=== PATIENT | female | born 1940 | race Two or more races ===

== ENCOUNTER 2019-03-22 23:08 | Inpatient (IN) | payer MEDICARE ==
[~2019-03-22] VITALS: Ht 165.1 cm; Wt 58.5 kg
[~2019-03-22 23:08] MED LIST: ENALAPRIL
[2019-03-22] MEDS ORDERED: ENAL5TAB PO (23:19)
[2019-03-22] MEDS ORDERED: ACETAMINOPHEN 500 MG TABLET PO ONE (23:45)
[2019-03-23] MEDS ORDERED: SODIUM CHLORIDE 0.9% 1,000 ML IV ONE (01:45)
[2019-03-23] MEDS ORDERED: MORPHINE SULFATE 2 MG/ML SYRINGE IVP ONE (01:45)
[2019-03-23 01:55] LABS: BASOPHILS % (AUTO) 0.2 % (0.0-2.0); EOSINOPHILS % (AUTO) 0.4 % (1.0-6.0); HEMATOCRIT 40.8 % (36-46); HEMOGLOBIN 13.4 g/dL (12.0-16.0); LYMPHOCYTES # (AUTO) 1.2 K/uL (1.0-4.8); LYMPHOCYTES % (AUTO) 8.6 % (22.0-44.0); MEAN CORPUSCULAR HEMOGLOBIN 31.8 pg (26.0-34.0); MEAN CORPUSCULAR HGB CONC 32.9 G/dL (31.0-37.0); MEAN CORPUSCULAR VOLUME 97 fL (80-100); MONOCYTES # (AUTO) 0.8 K/uL (0.1-1.0); MONOCYTES % (AUTO) 5.8 % (2.0-9.0); NEUTROPHILS # (AUTO) 11.9 K/uL (1.8-7.7); PLATELET COUNT (AUTO) 235 K/uL (150-450); RED BLOOD CELL COUNT(AUTO) 4.22 MIL/uL (4.00-5.20); RED CELL DISTRIBUTION WIDTH 13.7 % (11.5-14.5)
[2019-03-23 02:01] LABS: CALCIUM, TOTAL 8.9 mg/dL (8.8-10.5); CREATININE 0.97 mg/dL (0.60-1.30); POTASSIUM 3.4 mmol/L (3.5-5.1)
[2019-03-23 02:07] LABS: PROTHROMBIN TIME 10.4 SEC (9.4-11.6)
[2019-03-23 02:08] LABS: ALBUMIN 4.2 g/dL (3.4-5.0); BILIRUBIN,TOTAL 0.5 mg/dL (0.1-1.0); TOTAL PROTEIN, SERUM 7.4 g/dL (6.4-8.2)
[2019-03-23 02:23] LABS: APPEARANCE,URINE CLEAR (CLEAR); BILIRUBIN,URINE NEGATIVE (NEGATIVE); GLUCOSE, URINE (UA) NEGATIVE (NEGATIVE); KETONES,URINE 15 mg/dL (NEGATIVE); LEUKOCYTE ESTERASE ,URINE NEGATIVE (NEGATIVE); NITRATE,URINE POSITIVE (NEGATIVE); OCCULT BLOOD,URINE NEGATIVE (NEGATIVE); PH,URINE 6.5 (5.0-8.0); PROTEIN,URINE NEGATIVE (NEGATIVE)
[2019-03-23 02:30] LABS: BACTERIA,URINE Rare /HPF (None Seen); RBC,URINE 0-2 /HPF (0-2); SQUAMOUS EPITHELIAL CELL,UR Rare /LPF (None Seen); WBC,URINE None Seen /HPF (0-5)
[2019-03-23] MEDS ORDERED: ONDANSETRON HCL 4 MG/2 ML VIAL IVP ONE ×2 (02:45→12:00)
[2019-03-23] MEDS ORDERED: ACETAMINOPHEN 325 MG TABLET PO PRN (03:30)
[2019-03-23] MEDS ORDERED: ONDANSETRON HCL 4 MG/2 ML VIAL IVP PRN (03:30)
[2019-03-23] MEDS ORDERED: 0.9% SODIUM CHLORIDE 10 ML SYRINGE IVP PRN (03:30)
[2019-03-23] MEDS ORDERED: SUCCINYLCHOLINE CHLORIDE 20 MG/ML 10 ML VIAL IVP ONE (12:00)
[2019-03-23] MEDS ORDERED: FentaNYL CITRATE-PF 100 MCG/2 ML VIAL IVP ONE ×2 (12:00)
[2019-03-23] MEDS ORDERED: ROCURONIUM BROMIDE 10 MG/ML 5 ML VIAL IVP ONE (12:00)
[2019-03-23] MEDS ORDERED: DEXAMETHASONE SOD PHOS 4 MG/ML VIAL IVP ONE (12:00)
[2019-03-23] MEDS ORDERED: MORPHINE SULFATE 4 MG/ML SYRINGE IVP ONE ×2 (12:00)
[2019-03-23] MEDS ORDERED: PROPOFOL 1% 20 ML VIAL IVP ONE (12:00)
[2019-03-23] MEDS ORDERED: 0.9% SODIUM CHLORIDE 10 ML VIAL IVP ONE (12:00)
[2019-03-23] MEDS ORDERED: PHENYLEPHRINE HCL 10 MG/ML VIAL IVP ONE (12:00)
[2019-03-23] MEDS ORDERED: EPHEDrine SULFATE 50 MG/ML VIAL IM ONE (12:00)
[2019-03-23] MEDS ORDERED: TRANEXAMIC ACID 1,000 MG in DEXTROSE 5%-WATER 50 ML IV ONE (13:30)
[2019-03-23] MEDS ORDERED: BUPIVACAINE LIPOSOME/PF 1.3%-13.3MG/ML SUSPENSION 20 ML VIAL INJ ONE (13:30)
[2019-03-23] MEDS ORDERED: BUPIVACAINE HCL/PF 0.5% 30 ML VIAL ONE (13:42)
[2019-03-23] MEDS ORDERED: SODIUM CL IRRIG SOLN BAG 3,000 ML IRRIG ONE (13:43)
[2019-03-23] MEDS ORDERED: RINGERS SOLUTION,LACTATED 1,000 ML IV ONE (13:43)
[2019-03-23] MEDS ORDERED: VANCOMYCIN HCL 1 GM/VIAL ONE (13:46)
[2019-03-23] MEDS ORDERED: MEPERIDINE-PF 25 MG/ML VIAL IVP PRN (14:15)
[2019-03-23] MEDS ORDERED: FentaNYL CITRATE-PF 100 MCG/2 ML VIAL IVP PRN (14:15)
[2019-03-23] MEDS ORDERED: HYDROmorphone 2 MG/ML SYRINGE IVP PRN (14:15)
[2019-03-23] MEDS ORDERED: ONDANSETRON HCL 4 MG/2 ML VIAL IM PRN (15:30)
[2019-03-23] MEDS ORDERED: OxyCODONE HCL 5 MG IR TABLET PO PRN (15:30)
[2019-03-23] MEDS ORDERED: ZOLPIDEM TARTRATE 5 MG TABLET PO PRN (15:45)
[2019-03-23] MEDS ORDERED: ALBUTEROL SULFATE 2.5 MG/0.5 ML NEB SOLUTION NEB PRN (15:45)
[2019-03-23] MEDS ORDERED: BISACODYL 10 MG RECTAL RECTAL SUPPOSITORY PR PRN (15:45)
[2019-03-23] MEDS ORDERED: IPRATROPIUM BROMIDE 0.5 MG/2.5 ML NEB SOLUTION NEB PRN (15:45)
[2019-03-23] MEDS ORDERED: HYDROCODONE/ACETAMINOPHEN 5-325 MG TABLET PO PRN (15:45)
[2019-03-23] MEDS ORDERED: MORPHINE SULFATE 2 MG/ML SYRINGE IVP PRN (15:45)
[2019-03-23 17:05] VITALS: BP 141/53
[2019-03-23 19:47] VITALS: BP 123/55
[2019-03-23] MEDS ORDERED: SODIUM CHLORIDE 0.9% 250 ML IV ONE (20:02)
[2019-03-23] MEDS: FAMOTIDINE 20 MG TABLET PO SCH (20:15)
[2019-03-23] MEDS: ONDANSETRON HCL 4 MG/2 ML VIAL IVP PRN (20:15)
[2019-03-23] MEDS: DOCUSATE SODIUM 100 MG CAPSULE PO SCH (20:17)
[2019-03-23] MEDS: ACETAMINOPHEN 1000 MG/ISO-OSM 100 ML IV SCH (20:18)
[2019-03-23] MEDS: CeFAZolin 2 GM/DEXTROSE 50 ML IV SCH (23:10)
[2019-03-23 23:49] VITALS: BP 115/62
[2019-03-24] MEDS: ACETAMINOPHEN 1000 MG/ISO-OSM 100 ML IV SCH ×3 (03:22→14:46)
[2019-03-24 05:29] VITALS: BP 131/58
[2019-03-24] MEDS: CeFAZolin 2 GM/DEXTROSE 50 ML IV SCH ×2 (06:22→14:52)
[2019-03-24 07:13] VITALS: BP 121/58
[2019-03-24] MEDS: DOCUSATE SODIUM 100 MG CAPSULE PO SCH ×2 (08:12→21:01)
[2019-03-24] MEDS: ENALAPRIL MALEATE 2.5 MG TABLET PO SCH (08:12)
[2019-03-24] MEDS: FAMOTIDINE 20 MG TABLET PO SCH ×2 (08:12→21:01)
[2019-03-24] MEDS: ENOXAPARIN SODIUM 40 MG/0.4 ML PF SYRINGE SQ SCH (08:13)
[2019-03-24 09:33] LABS: BASOPHILS % (AUTO) 0.2 % (0.0-2.0); EOSINOPHILS % (AUTO) 0.1 % (1.0-6.0); HEMATOCRIT 39.8 % (36-46); HEMOGLOBIN 12.7 g/dL (12.0-16.0); LYMPHOCYTES # (AUTO) 0.8 K/uL (1.0-4.8); LYMPHOCYTES % (AUTO) 5.4 % (22.0-44.0); MEAN CORPUSCULAR HEMOGLOBIN 31.5 pg (26.0-34.0); MEAN CORPUSCULAR VOLUME 99 fL (80-100); MONOCYTES # (AUTO) 1.3 K/uL (0.1-1.0); MONOCYTES % (AUTO) 9.5 % (2.0-9.0); NEUTROPHILS % (AUTO) 84.8 % (40.0-70.0); PLATELET COUNT (AUTO) 215 K/uL (150-450); RED BLOOD CELL COUNT(AUTO) 4.04 MIL/uL (4.00-5.20); RED CELL DISTRIBUTION WIDTH 13.6 % (11.5-14.5)
[2019-03-24 09:43] LABS: CREATININE 1.13 mg/dL (0.60-1.30); POTASSIUM 5.1 mmol/L (3.5-5.1)
[2019-03-24 09:48] LABS: ALBUMIN 3.1 g/dL (3.4-5.0); BILIRUBIN,TOTAL 0.5 mg/dL (0.1-1.0); TOTAL PROTEIN, SERUM 6.4 g/dL (6.4-8.2)
[2019-03-24 11:42] VITALS: BP 126/62
[2019-03-24 15:17] VITALS: BP 112/64
[2019-03-24 19:45] VITALS: BP 147/72
[2019-03-24 23:30] VITALS: BP 141/78
[2019-03-24] MEDS: CYCLOBENZAPRINE HCL 10 MG TABLET PO PRN (23:41)
[2019-03-25] MEDS: HYDROmorphone 2 MG/ML SYRINGE IVP PRN ×6 (02:41→22:58)
[2019-03-25 05:11] VITALS: BP 132/62
[2019-03-25 07:30] VITALS: BP 120/68
[2019-03-25 07:40] LABS: BASOPHILS % (AUTO) 0.3 % (0.0-2.0); EOSINOPHILS % (AUTO) 2.1 % (1.0-6.0); HEMOGLOBIN 12.7 g/dL (12.0-16.0); LYMPHOCYTES # (AUTO) 1.5 K/uL (1.0-4.8); LYMPHOCYTES % (AUTO) 14.7 % (22.0-44.0); MEAN CORPUSCULAR HEMOGLOBIN 31.7 pg (26.0-34.0); MEAN CORPUSCULAR HGB CONC 32.6 G/dL (31.0-37.0); MEAN CORPUSCULAR VOLUME 97 fL (80-100); MONOCYTES # (AUTO) 1.2 K/uL (0.1-1.0); MONOCYTES % (AUTO) 11.7 % (2.0-9.0); NEUTROPHILS # (AUTO) 7.1 K/uL (1.8-7.7); NEUTROPHILS % (AUTO) 71.2 % (40.0-70.0); PLATELET COUNT (AUTO) 188 K/uL (150-450); RED CELL DISTRIBUTION WIDTH 13.8 % (11.5-14.5)
[2019-03-25 07:55] LABS: CALCIUM, TOTAL 8.8 mg/dL (8.8-10.5); CREATININE 0.92 mg/dL (0.60-1.30); POTASSIUM 3.5 mmol/L (3.5-5.1)
[2019-03-25 08:02] LABS: ALBUMIN 2.9 g/dL (3.4-5.0); BILIRUBIN,TOTAL 0.5 mg/dL (0.1-1.0); TOTAL PROTEIN, SERUM 6.3 g/dL (6.4-8.2)
[2019-03-25] MEDS: ENOXAPARIN SODIUM 40 MG/0.4 ML PF SYRINGE SQ SCH (09:11)
[2019-03-25] MEDS: FAMOTIDINE 20 MG TABLET PO SCH ×2 (09:11→20:38)
[2019-03-25] MEDS: DOCUSATE SODIUM 100 MG CAPSULE PO SCH ×2 (09:11→20:38)
[2019-03-25] MEDS: ENALAPRIL MALEATE 2.5 MG TABLET PO SCH (09:11)
[2019-03-25 11:42] VITALS: BP 119/63
[2019-03-25 15:39] VITALS: BP 116/61
[2019-03-25 19:23] VITALS: BP 130/70
[2019-03-25] MEDS: MAGNESIUM HYDROXIDE SUSPENSION 30 ML UDCUP PO PRN (20:59)
[2019-03-25] MEDS: CYCLOBENZAPRINE HCL 10 MG TABLET PO PRN (21:26)
[2019-03-25 23:34] VITALS: BP 137/63
[2019-03-26 04:40] VITALS: BP 157/76
[2019-03-26] MEDS: HYDROmorphone 2 MG/ML SYRINGE IVP PRN ×5 (05:41→22:18)
[2019-03-26 07:30] VITALS: BP 140/61
[2019-03-26] MEDS: FAMOTIDINE 20 MG TABLET PO SCH ×2 (08:00→20:12)
[2019-03-26] MEDS: ENALAPRIL MALEATE 2.5 MG TABLET PO SCH (08:00)
[2019-03-26] MEDS: DOCUSATE SODIUM 100 MG CAPSULE PO SCH ×2 (08:00→20:12)
[2019-03-26] MEDS: ENOXAPARIN SODIUM 40 MG/0.4 ML PF SYRINGE SQ SCH (08:01)
[2019-03-26] MEDS: ACETAMINOPHEN 325 MG TABLET PO PRN ×2 (08:12→20:12)
[2019-03-26 11:30] VITALS: BP 133/69
[2019-03-26 16:25] VITALS: BP 151/86
[2019-03-26 19:52] VITALS: BP 139/78
[2019-03-26 23:34] VITALS: BP 136/69
[2019-03-27] MEDS: HYDROmorphone 2 MG/ML SYRINGE IVP PRN ×4 (03:32→16:25)
[2019-03-27] MEDS: MAGNESIUM HYDROXIDE SUSPENSION 30 ML UDCUP PO PRN (04:21)
[2019-03-27 04:49] VITALS: BP 137/93
[2019-03-27] MEDS: ONDANSETRON HCL 4 MG/2 ML VIAL IVP PRN (05:23)
[2019-03-27 07:21] VITALS: BP 141/79
[2019-03-27] MEDS: ENOXAPARIN SODIUM 40 MG/0.4 ML PF SYRINGE SQ SCH (08:33)
[2019-03-27] MEDS: DOCUSATE SODIUM 100 MG CAPSULE PO SCH (08:37)
[2019-03-27] MEDS: FAMOTIDINE 20 MG TABLET PO SCH (08:38)
[2019-03-27] MEDS: ENALAPRIL MALEATE 2.5 MG TABLET PO SCH (08:39)
[2019-03-27 11:18] VITALS: BP 119/83
[2019-03-27 15:20] VITALS: BP 149/71
[2019-03-27 15:37] LABS: ANION GAP 7 mmol/L (8-16); CALCIUM, TOTAL 9.2 mg/dL (8.8-10.5); CARBON DIOXIDE 28 mmol/L (22-29); CHLORIDE 97 mmol/L (98-107); CREATININE 0.85 mg/dL (0.60-1.30); GLUCOSE,RANDOM 132 mg/dL (70-110); POTASSIUM 4.5 mmol/L (3.5-5.1); SODIUM SERUM 132 mmol/L (136-145); UREA NITROGEN, BLOOD 17 mg/dL (7-18)
[2019-03-27 15:43] LABS: GLOMERULAR FILTR. RATE CALC > 60 mL/min (>60)
[2019-03-27 15:44] LABS: ALANINE AMINOTRANSFERASE 46 U/L (12-78); ALBUMIN 2.5 g/dL (3.4-5.0); ALKALINE PHOSPHATASE 135 U/L (46-116); ASPARTATE AMINOTRANSFERASE 56 U/L (15-37); URIC ACID 3.7 mg/dL (2.6-7.2)
[2019-03-27] MEDS ORDERED: DSS100 PO (16:36)
[2019-03-27] MEDS ORDERED: ENAL2.5 PO (16:37)
[2019-03-27] MEDS ORDERED: FAMO20 PO (16:38)
[2019-03-27] MEDS ORDERED: ENOX40DI9 SQ (16:38)
[2019-03-27] MEDS ORDERED: CYCL10 PO (16:39)
[2019-03-27] MEDS ORDERED: ACET-2247 PO (16:39)
[2019-03-27 16:53] LABS: BASOPHILS % (AUTO) 0.7 % (0.0-2.0); EOSINOPHILS % (AUTO) 0.9 % (1.0-6.0); HEMATOCRIT 38.3 % (36-46); HEMOGLOBIN 12.3 g/dL (12.0-16.0); LYMPHOCYTES # (AUTO) 1.4 K/uL (1.0-4.8); MEAN CORPUSCULAR HEMOGLOBIN 31.5 pg (26.0-34.0); MEAN CORPUSCULAR HGB CONC 32.2 G/dL (31.0-37.0); MEAN CORPUSCULAR VOLUME 98 fL (80-100); MONOCYTES # (AUTO) 1.6 K/uL (0.1-1.0); MONOCYTES % (AUTO) 13.2 % (2.0-9.0); NEUTROPHILS # (AUTO) 9.2 K/uL (1.8-7.7); NEUTROPHILS % (AUTO) 74.2 % (40.0-70.0); PLATELET COUNT (AUTO) 253 K/uL (150-450); RED BLOOD CELL COUNT(AUTO) 3.91 MIL/uL (4.00-5.20); RED CELL DISTRIBUTION WIDTH 13.5 % (11.5-14.5)
[2019-03-27] MEDS ORDERED: MOM30 PO (17:12)
[2019-03-27 17:55] LABS: ERYTHROCYTE SEDIMENTATION RATE 100 MM/HR (0-20)
== END 2019-03-27 17:50 | DRG 470 ==
LOC: EMS 23:09 → 5S 03-23 14:21
PROVIDERS: ADMIT Hospitalist; ATTEND Hospitalist
PROC: 0SRS0JZ Replacement of Left Hip Joint, Femoral Surface with Synthetic Substitute, Open Approach (ICD-10-PCS; principal; 2019-03-23 14:00)
DX: S72.032A Displaced midcervical fracture of left femur, initial encounter for closed fracture (principal); I10 Essential (primary) hypertension; D72.829 Elevated white blood cell count, unspecified; I48.0 Paroxysmal atrial fibrillation; W18.39XA Other fall on same level, initial encounter; Y93.89 Activity, other specified; Y92.89 Other specified places as the place of occurrence of the external cause; Y99.8 Other external cause status; Z79.899 Other long term (current) drug therapy
CPT/HCPCS: 70450; 72125; 72170; 73503; 73552; 73721; 83036; 84550; 85651; 87081; 88300; 93005; 97110; 97116; 97162; 97530; C9290; J0131; J0330; J0690; J1100; J1170; J1650; J2270; J2370; J2405; J2704; J3010; J3370; J3490; J7030; J7050; J7060; J7120